=== PATIENT | male | born 1990 ===

== ENCOUNTER 2022-07-13 20:39 | Emergency (ER) | payer BC ==
[2022-07-13] MEDS ORDERED: Ketorolac 30 MG/ML SDV IM ONE (21:41)
[2022-07-13] MEDS ORDERED: SUMAtriptan 50 MG Tab PO ONE (21:41)
[2022-07-13 22:00] LABS: ANION GAP 8.4 meq/L (7-15); CHLORIDE,CL 102 mmol/L (98-107); ESTIMATED GFR 109 mL/min (>=60); SODIUM,NA 137 mmol/L (136-145)
== END 2022-07-13 21:44 | disposition home or self-care (01) ==
LOC: LL.ED 20:39
DX: R51.9 Headache, unspecified (principal); Z91.011 Allergy to milk products; Z91.018 Allergy to other foods
CPT/HCPCS: 36415; 70450; 80053; 83735; 85025; 96372; 99284; A9270-GY; J1885

== ENCOUNTER 2022-08-16 20:08 | Emergency (ER) | payer BC ==
[2022-08-16 21:01] LABS: RESPIRATORY SYNCYTIAL VIR NAA NEGATIVE (NEGATIVE)
[2022-08-16 21:04] LABS: CORONAVIRUS COVID-19 NAA POSITIVE (NEGATIVE)
== END 2022-08-16 21:15 | disposition home or self-care (01) ==
LOC: LL.ED 20:08
DX: U07.1 COVID-19 (principal); Z88.8 Allergy status to other drugs, medicaments and biological substances
CPT/HCPCS: 0241U; 87081; 87430; 99283

== ENCOUNTER 2022-08-18 21:35 | Emergency (ER) | payer BC ==
[2022-08-18] MEDS ORDERED: Sodium Chloride 0.9% 10 ML Syringe FLUSH PRN (21:36)
[2022-08-18 22:18] LABS: ANION GAP 9.3 meq/L (7-15); CHLORIDE,CL 102 mmol/L (98-107); ESTIMATED GFR 99 mL/min (>=60); SODIUM,NA 139 mmol/L (136-145)
== END 2022-08-18 23:45 | disposition home or self-care (01) ==
LOC: LL.ED 21:35
DX: U07.1 COVID-19 (principal); Z79.899 Other long term (current) drug therapy; Z91.011 Allergy to milk products; Z91.018 Allergy to other foods
CPT/HCPCS: 36415; 71045; 80053; 83605; 83735; 84484; 85025; 85379; 86140; 87040; 93005; 99284